=== PATIENT | male | born 1995 | race Caucasian/White ===

== ENCOUNTER 2019-03-22 16:55 | Emergency (ER) | payer OTHER ==
[~2019-03-22] VITALS: Ht 170.2 cm; Wt 81.7 kg
[2019-03-22 17:42] LABS: ABSOLUTE BASOPHILS 0.1 thou/uL (0.0-0.2); ABSOLUTE EOSINOPHILS 0.3 thou/uL (0.0-0.7); ABSOLUTE LYMPHOCYTES 2.1 thou/uL (0.8-5.3); ABSOLUTE MONOCYTES 0.4 thou/uL (0.0-1.2); ABSOLUTE NEUTROPHILS 3.5 thou/uL (1.6-8.1); BASOPHILS 0.9 %; EOSINOPHILS 4.5 %; HEMATOCRIT 45.9 % (42.0-52.0); HEMOGLOBIN 16.4 gm/dL (14.0-18.0); LYMPHOCYTES 32.4 %; MCH 31.1 pg (26.0-34.0); MCHC 35.8 g/dL (28.0-37.0); MPV 8.7 fl. (7.2-11.1); NUCLEATED RBCS 0 /100WBC; PLATELET COUNT* 186 thou/uL (150-400); POLYS 55.2 %; RBC 5.28 mil/uL (4.50-6.00); RDW-CV 12.9 % (10.5-14.5); WBC 6.4 thou/uL (4.0-11.0)
[2019-03-22 17:56] LABS: ALBUMIN 4.2 g/dL (3.4-5.0); CREATININE 1.4 mg/dL (0.6-1.3); POTASSIUM 3.9 mmol/L (3.5-5.1); TOTAL BILIRUBIN 0.5 mg/dL (<0.1-1.0); TOTAL PROTEIN 7.5 g/dL (6.4-8.2)
[2019-03-22 18:02] LABS: CALCIUM 8.8 mg/dL (8.5-10.1)
[2019-03-22] MEDS ORDERED: BUTALB-APAP-CA1 EACH PO (18:46)
[2019-03-22 19:08] VITALS: BP 133/56
== END 2019-03-22 19:10 | disposition home or self-care (01) ==
LOC: M.ERS 16:55
PROVIDERS: Nurse Practitioner Family
DX: R51 Headache (principal); R79.89 Other specified abnormal findings of blood chemistry